=== PATIENT | female | born 1980 | race Caucasian/White ===

== ENCOUNTER 2016-10-19 13:26 | Emergency (ER) | payer SELFPAY ==
[2016-10-19 17:30] LABS: BASOPHIL % 0.2 % (0-2); PLATELET COUNT 211 x10^3mcL (130-400)
[2016-10-19 17:31] LABS: RED CELL DISTRIBUTION WIDTH 15.6 % (11.5-14.5)
[2016-10-19 18:54] VITALS: BP 139/64
== END 2016-10-19 18:54 | disposition home or self-care (01) ==
LOC: ED 13:26
PROVIDERS: Emergency Medicine
DX: R51 Headache (principal); R59.0 Localized enlarged lymph nodes
CPT/HCPCS: J1885; Q9967